=== PATIENT | female | born 1985 | race Caucasian/White ===

== ENCOUNTER 2021-10-22 02:45 | Inpatient (IN) ==
[2021-10-22 03:35] LABS: Bacteria,Urine Few per hpf (None-Few); Bilirubin,Urine Negative (Negative); Blood,Urine Small (Negative); Clarity,Urine Clear (Clear); Color,Urine Colorless (Yellow); Glucose,Urine (UA) Normal (Normal); Hyaline Casts,Urine Few per lpf (None Seen); Ketones,Urine Negative (Negative); Leukocyte Esterase,Urine Negative (Negative); Mucus,Urine Few per lpf (None-Few); Nitrite,Urine Negative (Negative); Protein,Urine Negative (Neg-Trace); RBC,Urine 0-3 per hpf (0-3); Specific Gravity,Urine 1.007 (1.010-1.025); Squamous Epithelial Cell,Urine Few per hpf (None-Few); Urobilinogen,Urine Normal (Normal)
[2021-10-22 03:37] LABS: Basophils # 0.1 K/mcL (0.0-0.2); Basophils % 0.8 %; Eosinophils % 0.6 %; Hematocrit 30.3 % (35.3-44.9); Hemoglobin 9.1 g/dL (11.5-15.4); Immature Granulocytes % 0.2 % (0-4); Lymphocytes # 1.6 K/mcL (0.6-4.6); Lymphocytes % 26.5 %; Mean Corpuscular Hemoglobin 21.6 pg (28.0-33.3); Mean Platelet Volume 9.1 fL (9.4-12.4); Monocytes # 0.4 K/mcL (0.0-1.3); Monocytes % 7.1 %; Platelet Count 531 K/mcL (140-400); Red Blood Count 4.21 M/mcL (3.82-4.97); Red Cell Distribution Width 18.7 % (11.5-14.5); Segmented Neutrophils % 64.8 %; White Blood Count 6.2 K/mcL (4.3-11.1)
[2021-10-22 03:44] LABS: Amphetamine Screen,Urine Negative ng/mL (Cutoff=1000); Barbiturate Screen,Urine Negative ng/mL (Cutoff=200); Benzodiazepines Screen,Urine Negative ng/mL (Cutoff=200); Cannabinoid Screen,Urine Negative ng/mL (Cutoff = 50); Cocaine Screen,Urine Negative ng/mL (Cutoff= 300); Opiate Screen,Urine Negative ng/mL (Cutoff=300); Phencyclidine Screen,Urine Negative ng/mL (Cutoff=25)
[2021-10-22 04:00] LABS: Acetaminophen < 10 mcg/mL (10-20); BUN/Creatinine Ratio 25 (6-26); Blood Urea Nitrogen 18 mg/dL (6-20); Calcium 9.1 mg/dL (8.6-10.3); Carbon Dioxide 26 mEq/L (23-29); Chloride 103 mEq/L (98-107); Ethanol < 10 mg/dL (Less than 10); Glucose 88 mg/dL (70-105); Osmolality,Calculated 287 (280-300); Potassium 3.4 mEq/L (3.5-5.1); Salicylate 3.4 mg/dL (15.0-30.0); Sodium 138 mEq/L (136-145); eGFR For African Americans > 60 (> 60); eGFR For Non-African Americans > 60 (> 60)
[2021-10-22 04:24] LABS: Influenza A PCR Negative (Negative); Influenza B PCR Negative (Negative); Resp. Syncytial Virus PCR Negative (Negative)
[2021-10-22 04:28] LABS: SARS-CoV-2 by PCR (In House) Negative (Negative)
[2021-10-22] MEDS ORDERED: Haloperidol Lactate 5 MG/ML VIAL IM PRN (07:16)
[2021-10-22] MEDS ORDERED: haloperidoL 5 MG TABLET PO PRN (07:16)
[2021-10-22] MEDS ORDERED: *HR* LORazepam 2 MG/ML VIAL IM PRN (07:16)
[2021-10-22] MEDS ORDERED: *HR* LORazepam 1 MG TABLET PO PRN (07:16)
[2021-10-22] MEDS: ARIPiprazole 5 MG TABLET PO SCH (20:38)
[2021-10-23] MEDS ORDERED: FLUoxetine HCl 10 MG CAPSULE PO SCH (09:00)
[2021-10-23] MEDS: Nicotine 2 MG GUM BC PRN ×2 (12:29→17:55)
[2021-10-23] MEDS ORDERED: Acetaminophen 325 MG TABLET PO PRN (20:28)
[2021-10-23] MEDS: ARIPiprazole 5 MG TABLET PO SCH (20:32)
[2021-10-23] MEDS: QUEtiapine Fumarate 25 MG TABLET PO PRN (20:32)
[2021-10-23] MEDS: Acetaminophen 325 MG TABLET PO PRN (20:47)
[2021-10-23] MEDS: hydrOXYzine pamoate 25 MG CAPSULE PO PRN (20:47)
[2021-10-24] MEDS ORDERED: FLUoxetine HCl Oral Soln 20 MG/5 ML UDC PO SCH (09:00)
[2021-10-24] MEDS: FLUoxetine 20 MG CAPSULE PO SCH (09:49)
[2021-10-24] MEDS: Nicotine 2 MG GUM BC PRN ×2 (12:35→19:20)
[2021-10-24] MEDS ORDERED: Mag Hydrox/Al Hydrox/Simeth 30 ML UDC PO PRN (20:19)
[2021-10-24] MEDS: QUEtiapine Fumarate 25 MG TABLET PO PRN (20:19)
[2021-10-24] MEDS: hydrOXYzine pamoate 25 MG CAPSULE PO PRN (20:20)
[2021-10-24] MEDS: Acetaminophen 325 MG TABLET PO PRN (20:20)
[2021-10-24] MEDS: ARIPiprazole 5 MG TABLET PO SCH (20:20)
[2021-10-25] MEDS: FLUoxetine 20 MG CAPSULE PO SCH (09:33)
[2021-10-25] MEDS: hydrOXYzine pamoate 25 MG CAPSULE PO PRN ×2 (15:21→17:57)
[2021-10-25] MEDS: Acetaminophen 325 MG TABLET PO PRN (20:29)
[2021-10-25] MEDS: ARIPiprazole 10 MG TABLET PO SCH (20:29)
[2021-10-25] MEDS: QUEtiapine Fumarate 25 MG TABLET PO PRN (20:29)
[2021-10-26] MEDS: FLUoxetine 20 MG CAPSULE PO SCH (09:45)
[2021-10-26] MEDS: Acetaminophen 325 MG TABLET PO PRN ×2 (11:46→17:24)
[2021-10-26] MEDS: hydrOXYzine pamoate 25 MG CAPSULE PO PRN (17:23)
[2021-10-26] MEDS: ARIPiprazole 10 MG TABLET PO SCH (20:21)
[2021-10-26] MEDS: QUEtiapine Fumarate 25 MG TABLET PO PRN (20:21)
[2021-10-27] MEDS: FLUoxetine 20 MG CAPSULE PO SCH (09:51)
[2021-10-27] MEDS ORDERED: FLUoxetine 20 MG CAPSULE PO SCH (10:00)
[2021-10-27] MEDS ORDERED: FLUoxetine 20 MG CAPSULE PO ONE (10:31)
[2021-10-27] MEDS: Nicotine 2 MG GUM BC PRN (14:16)
[2021-10-27] MEDS: hydrOXYzine pamoate 25 MG CAPSULE PO PRN (17:29)
[2021-10-27] MEDS: Acetaminophen 325 MG TABLET PO PRN (17:29)
[2021-10-27] MEDS: QUEtiapine Fumarate 25 MG TABLET PO PRN (20:56)
[2021-10-27] MEDS: ARIPiprazole 10 MG TABLET PO SCH (20:56)
[2021-10-27 21:12] VITALS: O2SAT 100
[2021-10-28 08:40] VITALS: BP 124/79; PULSE 71; TEMP 97.9
[2021-10-28] MEDS ORDERED: FLUoxetine 20 MG CAPSULE PO SCH (09:00)
[2021-10-28] MEDS ORDERED: FLUoxetine HCl Oral Soln 20 MG/5 ML UDC PO ONE (10:29)
[2021-10-28] MEDS: Acetaminophen 325 MG TABLET PO PRN (17:13)
[2021-10-28] MEDS ORDERED: Nicotine 21 MG PATCH.TD24 TD SCH (17:15)
[2021-10-28] MEDS ORDERED: FLU Vac QV 21-22 (6Month+)/PF 0.5 ML SYRINGE IM ONE (17:38)
== END 2021-10-28 18:55 | disposition home or self-care (01) | DRG 751 ==
LOC: EMEROOARM 02:45 → 1ANU 08:04
PROVIDERS: ADMIT Psychiatry & Neurology Psychiatry; ATTEND Psychiatry & Neurology Psychiatry